=== PATIENT | female | born 1975 | race Asian ===

== ENCOUNTER 2019-08-18 10:30 | Inpatient (IN) | payer BC ==
[~2019-08-18] VITALS: Ht 167.6 cm; Wt 51.9 kg
[2019-08-18 11:30] LABS: BASOPHIL % 1.1 % (0-2)
[2019-08-18 11:34] LABS: PLATELET COUNT 119 x10^3mcL (130-400); RED CELL DISTRIBUTION WIDTH 15.9 % (11.5-14.5)
[2019-08-18 11:49] LABS: CALCIUM 8.7 mg/dL (8.5-10.1); CARBON DIOXIDE 28.3 mmol/L (21-32); CHLORIDE SERUM 100 mmol/L (98-107); CREATININE SERUM 0.6 mg/dL (0.6-1.0); GFR1 > 60 mL/min; GLUCOSE SERUM 117 mg/dL (74-106); POTASSIUM SERUM 4.3 mmol/L (3.5-5.1); SODIUM SERUM 140 mmol/L (136-145)
[2019-08-18 11:54] LABS: ALKALINE PHOSPHATASE 254 U/L (46-116); ALT/SGPT 167 U/L (14-59); AST/SGOT 529 U/L (15-37); BILIRUBIN TOTAL 1.69 mg/dL (0.20-1.00); TOTAL PROTEIN, SERUM 6.3 g/dL (6.4-8.2)
[2019-08-18 11:55] LABS: ALBUMIN 2.7 g/dL (3.4-5.0)
[2019-08-18 13:42] VITALS: BP 111/77
[2019-08-18 13:52] VITALS: Ht 167.6 cm; Wt 51.9 kg
[2019-08-18 16:56] VITALS: BP 107/71
[2019-08-18 19:45] VITALS: BP 102/54
[2019-08-19 05:37] VITALS: BP 99/63
[2019-08-19 06:50] LABS: BASOPHIL % 0.4 % (0-2)
[2019-08-19 07:03] LABS: PLATELET COUNT 107 x10^3mcL (130-400); RED CELL DISTRIBUTION WIDTH 15.4 % (11.5-14.5)
[2019-08-19 08:37] VITALS: BP 107/68
[2019-08-19 08:39] LABS: CALCIUM 8.6 mg/dL (8.5-10.1); CARBON DIOXIDE 29.7 mmol/L (21-32); CHLORIDE SERUM 100 mmol/L (98-107); CREATININE SERUM 0.6 mg/dL (0.6-1.0); GFR1 > 60 mL/min; GLUCOSE SERUM 72 mg/dL (74-106); POTASSIUM SERUM 3.8 mmol/L (3.5-5.1); SODIUM SERUM 139 mmol/L (136-145)
[2019-08-19 13:53] VITALS: BP 112/72
[2019-08-19 14:53] VITALS: BP 118/87
[2019-08-19 17:22] VITALS: BP 112/80
[2019-08-19 19:50] VITALS: BP 110/66
[2019-08-20] VITALS (9 sets, daily range): BP systolic 93–160; BP diastolic 62–93
[2019-08-20 13:39] LABS: APPEARANCE FLUID HAZY; COLOR FLUID YELLOW; SOURCE FLUID ASCITES
[2019-08-20 13:40] LABS: WBC FLUID 70 /cumm
[2019-08-20 13:41] LABS: RBC FLUID 1150 /cumm
[2019-08-20 14:49] LABS: LYMPHOCYTE FLUID 85 %; MONOCYTE FLUID 10 %
[2019-08-21 05:33] VITALS: BP 95/63
[2019-08-21 06:31] LABS: BASOPHIL % 0.5 % (0-2)
[2019-08-21 06:48] LABS: CALCIUM 8.5 mg/dL (8.5-10.1); CARBON DIOXIDE 29.8 mmol/L (21-32); CHLORIDE SERUM 99 mmol/L (98-107); CREATININE SERUM 0.6 mg/dL (0.6-1.0); GFR1 > 60 mL/min; GLUCOSE SERUM 94 mg/dL (74-106); POTASSIUM SERUM 3.4 mmol/L (3.5-5.1); SODIUM SERUM 140 mmol/L (136-145)
[2019-08-21 06:52] LABS: PLATELET COUNT 108 x10^3mcL (130-400)
[2019-08-21 08:07] VITALS: BP 112/75
[2019-08-21] MEDS ORDERED: L20 PO (11:02)
[2019-08-21] MEDS ORDERED: ALD50 PO (11:02)
[2019-08-21] MEDS ORDERED: THERA TABLET400 MCG PO (11:03)
[2019-08-21] MEDS ORDERED: FOL1 PO (11:03)
[2019-08-21 12:13] VITALS: BP 112/72
[2019-08-21 12:22] VITALS: BP 112/75
== END 2019-08-21 14:12 | disposition home or self-care (01) | DRG 441 ==
LOC: ED 10:30 → MU 12:21
PROVIDERS: Emergency Medicine; Family Medicine; Internal Medicine Gastroenterology; ADMIT Internal Medicine
PROC: 0DB78ZX Excision of Stomach, Pylorus, Via Natural or Artificial Opening Endoscopic, Diagnostic (ICD-10-PCS; principal; 2019-08-20 08:00)
PROC: 0W9G3ZZ Drainage of Peritoneal Cavity, Percutaneous Approach (ICD-10-PCS; 2019-08-20 08:00)
DX: K72.90 Hepatic failure, unspecified without coma (principal); E43 Unspecified severe protein-calorie malnutrition; K76.6 Portal hypertension; K70.31 Alcoholic cirrhosis of liver with ascites; F10.20 Alcohol dependence, uncomplicated; T51.0X4A Toxic effect of ethanol, undetermined, initial encounter; Y90.0 Blood alcohol level of less than 20 mg/100 ml
CPT/HCPCS: 43235; 49083; 83880; 87116; 87206; 88344; C1729; C9113; G0378; J1200; J1610; J1940; J2250; J2310; J3010; J3490; Q0092